=== PATIENT | male | born 1975 | race Caucasian/White ===

== ENCOUNTER 2018-01-04 20:35 | Emergency (ER) | payer BC, SELFPAY ==
[2018-01-04 21:12] VITALS: BP 111/81; PULSE 72; RESP 14; TEMP 36.8; O2SAT 97; BMI 30.4
--- NOTE | 2018-01-04 21:17 | HMH.EDUTC ---
[facility] [place] Clinical Impression: Blood pressure check, History of headache Disposition: Home, Self-Care Condition on Discharge: Good Instructions: DI for Headache Additional Instructions: Your blood pressure was great Headaches can be due to posture and stress I would encourage keeping a headache diary. Write down when they occur, what is going on, how long they last, characteristics, any interventions and over time, it is easier to find cause Referrals: Mehreen Natarajan PA [Primary Care Provider] - (as needed if headaches persist) Time of Disposition: 21:34 Medical Decision Making Vital Signs: 01/04/18 21:12 Temperature 98.2 F Temperature Source Temporal Artery Scan Pulse Rate [Right Brachial] 72 Respiratory Rate 14 Blood Pressure [Right Arm] 111/81 Blood Pressure Mean [Right Arm] 91 Blood Pressure Source [Right Arm] Automatic Cuff Blood Pressure Position [Right Arm] Sitting 02 Sat by Pulse Oximetry 97 Oxygen Delivery Method Room Air - Cas Inquiry Pt receiving controlled substance: No [facility] [place] - General Stated complaint: headache Time Seen by Provider: 01/04/18 21:17 Mode of Arrival: Ambulatory Source of Information: Patient Limitations: No Limitations Description of Symptoms (Recalled from Triage Doc. by RN): STATES THAT HE HAS HAD HEADACHES A LOT LATELY AND DECIDED THAT SINCE HE WAS HERE WITH HIS SON, HE WOULD GET HIS BP CHECKED TO SEE IF THAT'S THE CAUSE. PT DENIES HX OF MIGRAINES OR ANY OTHER PROBLEMS. HEENT Symptoms (Recalled from RN notes): Yes (HILL) Resp Symptoms (Recalled from RN notes): No Skin Symptoms (Recalled from RN notes): No MS Symptoms (Recalled from RN notes): No Functional Status (Recalled from RN notes): N/A - History of Present Illness Provider Complaint: c/o I just want my blood pressure checked . Intermittent headaches x weeks. Contibutes them to more driving and stress. Start w/ tension in neck and move into head. Sees chiropractor for neck and shoulder tension at times. Resolved with hemp oil. I just want to be sure not due to blood pressure or something . No headache currently. Here with son who has JULES. - Related Data Allergies Allergy/AdvReac Type Severity Reaction Status Date / Time No Known Allergies Allergy Unverified 11/06/17 14:31 - Worker's Comp Is this a Worker's Comp case?: No [facility] History I have reviewed the patient's past medical history: Yes Medical History: Reports:: Gastroesophageal Reflux Disease(GERD) Denies:: Cancer, Diabetes Mellitus Type 1, Diabetes Mellitus Type 2, Hypertension, MRSA Other Medical History: Reports: Other (insomnia) Other Surgeries: Yes: No Previous Surgery Amputation: No Fractures: No - *Social History Smoking Status: Never smoker Alcohol Intake: never - Psychiatric History Expresses thoughts of harming self/others: None Suicide Plan Description: No Plan ROS Obtained: Yes Systems reviewed as appropriate & no additional complaints - Constitutional Constitutional: Denies body ache, Denies chills, Denies difficulty sleeping, Denies fatigue, Denies fever(s) - Eyes Eyes: Denies blurry vision, Denies change in vision - ENT Ears, Nose, Mouth, and Throat: Denies dizziness, Denies otalgia, Denies ringing in the ears - Cardiovascular Cardiovascular: Denies chest pain, Denies irregular heart rhythm - Respiratory Respiratory: No dyspnea - Gastrointestinal Gastrointestingal: Denies: nausea, vomiting - Musculoskeletal Musculoskeletal: Reports as per HPI, Reports stiffness (in neck and shoulders with driving long distances, doing so more lately) - Integumentary/Breasts Skin/Breast: Denies lesions, Denies rash - Neurologic Neurologic: Reports as per HPI, Denies abnormal gait, Denies abnormal hearing, Denies behavioral changes, Denies lack of coordination, Denies tingling/numbness/burning sensations, Denies weakness Physical Exam - General General appearance: alert, in no apparent distress - Hea
[2018-01-04 21:35] VITALS: BP 135/76; PULSE 76; RESP 20; TEMP 36.6; O2SAT 100
== END 2018-01-04 21:36 | disposition home or self-care (01) ==
PROVIDERS: Emergency Provider Nurse Practitioner Family; PCP Physician Assistant
DX: R51 Headache (principal); K21.9 Gastro-esophageal reflux disease without esophagitis; Z01.30 Encounter for examination of blood pressure without abnormal findings; G47.00 Insomnia, unspecified
CPT/HCPCS: 99202

== ENCOUNTER 2020-06-21 19:09 | Emergency (ER) | payer BC, SELFPAY ==
[2020-06-21 19:27] VITALS: BP 137/87; PULSE 80; RESP 14; TEMP 36.9; O2SAT 99; BMI 31.1
--- NOTE | 2020-06-21 19:33 | XR_ITS ---
PROCEDURE: XR HAND RT MIN 3V CLINICAL INDICATION: INJURY Pain COMPARISON: No exams were available for comparison FINDINGS: No fracture or dislocation. No lytic or blastic change. There is normal mineralization. The joint spaces are well-preserved. No significant degenerative/arthritic changes. No erosive changes evident. Other findings:None. IMPRESSION: No acute findings. Dictated by: Bala Arango MD 06/21/2020 21:47 Bala Arango MD in [place] 07/27/2020 05:05
--- NOTE | 2020-06-21 19:33 | XR_ITS ---
PROCEDURE: XR WRIST RT MIN 3V CLINICAL INDICATION: INJURY Posttraumatic pain COMPARISON: No exams were available for comparison FINDINGS: No fracture or dislocation. No lytic or blastic change. There is normal mineralization. The joint spaces are well-preserved. No significant degenerative/arthritic changes. No erosive changes evident. Other findings:None. IMPRESSION: No acute findings. This exam was originally interpreted on 06/21/2020 and has been resubmitted for 2nd signature on 07/26/2020 Dictated by: Bala Arango MD 06/21/2020 21:47 Bala Arango MD in [place] 07/27/2020 05:02
--- NOTE | 2020-06-21 20:23 | HMH.EDUTC ---
[facility] [place] Impression: Right wrist sprain Qualifiers: Encounter type: initial encounter Qualified Code(s): S63.501A - Unspecified sprain of right wrist, initial encounter Sprain of right hand Qualifiers: Encounter type: initial encounter Qualified Code(s): S63.91XA - Sprain of unspecified part of right wrist and hand, initial encounter Disposition: Home, Self-Care Condition on Discharge: Good Instructions: Wrist Sprain, DI for Wrist Sprain Additional Instructions: Rest the extremity, apply ice for 15 minutes as tolerated three or four times per day, Wear the robb wrap for compression, Elevate the extremity as tolerated while you are resting. Take ibuprofen for pain. I sent in a prescription to your pharmacy. Follow up with Dr. Shepherd (orthopedics). I put in a referral but you need to call her office and schedule an appointment. Follow up with your regular doctor. GO TO THE ER FOR ANY WORSENING SYMPTOMS Prescriptions: Ibuprofen [Ibuprofen 600mg Tablet] 600 mg PO Q6HP PRN #30 tab PRN Reason: Mild Pain Transmission Status: Received by [facility] Referrals: Mehreen Natarajan PA [Primary Care Provider] - Clare Shepherd MD [Physician] - Time of Disposition: 20:30 Medical Decision Making - Medical Records Medical records reviewed: No: I reviewed the patient's medical records. - Cas Inquiry Pt receiving controlled substance: No Vital Signs: 06/21/20 19:27 06/21/20 20:26 Temperature 98.5 F 98.5 F Temperature Source Oral Pulse Rate 80 Pulse Rate [Right Brachial] 80 Respiratory Rate 14 14 Blood Pressure 137/87 Blood Pressure [Right Arm] 137/87 Blood Pressure Mean [Right Arm] 103 Blood Pressure Source [Right Arm] Automatic Cuff Blood Pressure Position [Right Arm] Sitting 02 Sat by Pulse Oximetry 99 Oxygen Delivery Method Room Air Orders (Tests/Meds): ORDERS Category Date Time Status Wrist XR right minimum 3 views [XR wrist RT min 3V] Exams 06/21/20 19:33 Taken Stat XR hand RT min 3V Stat Exams 06/21/20 19:33 Taken - Radiology Data #1 Image(s): Wrist Image Reviewed: Yes I reviewed the patient's radiology image, Yes I have reviewed radiologist's interpretation Preliminary Findings: No Fracture Seen #2 Image(s): Hand Image Reviewed: Yes I reviewed the patient's radiology image, Yes I have reviewed radiologist's interpretation Preliminary Findings: No Fracture Seen [facility] [place] - General Stated complaint: [id number] injured R Arm Time Seen by Provider: 06/21/20 19:40 Mode of Arrival: Ambulatory Source of Information: Patient Limitations: No Limitations Description of Symptoms (Recalled from Triage Doc. by RN): PATIENT C/O PAIN AND SWELLING TO RIGHT WRIST AREA AFTER FALLING AND TRYING TO CATCH HIMSELF WITH THAT HAND. DENIES HITTING HEAD OR ANY OTHER INJURIES HEENT Symptoms (Recalled from RN notes): No Resp Symptoms (Recalled from RN notes): No Skin Symptoms (Recalled from RN notes): No MS Symptoms (Recalled from RN notes): Yes Functional Status (Recalled from RN notes): WNL - History of Present Illness Provider Complaint: He states that earlier today, he was helping to carry a wagon washer when he slipped and fell backwards. He came down on his right wrist and hand. He has had right hand pain since then that is worse when he is making a fist. - Related Data Previous Rx's Medication Instructions Recorded citalopram 40 mg tablet 40 mg PO DAILY #30 tab 09/09/18 [id number] 3.5 4 drp OTIC TID 10 Days #10 ml 05/31/19 mg/mL-10,000 unit/mL-1 % ear solution Ibuprofen [Ibuprofen 600mg 600 mg PO Q6HP PRN #20 tab 07/21/19 Tablet] sulfamethoxazole 800 1 tab PO BID 10 Days #20 tab 09/15/19 mg-trimethoprim 160 mg tablet omeprazole 20 mg capsule,delayed 20 mg PO DAILY #90 cap 11/27/19 release Ibuprofen [Ibuprofen 600mg 600 mg PO Q6HP PRN #30 tab 06/21/20 Tablet] Aller
[2020-06-21 20:26] VITALS: BP 137/87; PULSE 80; RESP 14; TEMP 36.9; O2SAT 99
== END 2020-06-21 20:37 | disposition home or self-care (01) ==
PROVIDERS: Emergency Provider Nurse Practitioner Family; PCP Physician Assistant
DX: S63.501A Unspecified sprain of right wrist, initial encounter (principal); W01.198A Fall on same level from slipping, tripping and stumbling with subsequent striking against other object, initial encounter; Y92.89 Other specified places as the place of occurrence of the external cause; F41.8 Other specified anxiety disorders; K21.9 Gastro-esophageal reflux disease without esophagitis
CPT/HCPCS: 29125; 73110; 73130; 99203

== ENCOUNTER 2020-06-24 11:30 | Outpatient (RCR) | payer BC, SELFPAY | END 2020-06-24 12:00 | disposition home or self-care (01) | LOC: PT 11:30 | PROVIDERS: Visit Provider Orthopaedic Surgery | DX: S63.501A Unspecified sprain of right wrist, initial encounter (principal) | CPT/HCPCS: 97760 ==

== ENCOUNTER → 2021-07-18 18:14 | Outpatient (CLI) | payer BC, SELFPAY ==
--- NOTE | 2021-07-19 11:59 | PC.NURSE ---
Called pt and left voicemail
--- NOTE | 2021-07-19 13:20 | PC.NURSE ---
Notified pt of positive results
== END ==
PROVIDERS: Visit Provider Physician Assistant
DX: Z11.52 Encounter for screening for COVID-19 (principal); U07.1 COVID-19; R69 Illness, unspecified; J02.9 Acute pharyngitis, unspecified
CPT/HCPCS: U0003

== ENCOUNTER → 2021-08-15 13:46 | Outpatient (CLI) | payer BC, SELFPAY ==
[2021-08-15 13:57] LABS: Basophils % 0.8 % (0.1-2.0); Eosinophils # 0.1 K/mm3 (0.0-0.4); Eosinophils % 2.7 % (0.1-12.0); Hemoglobin 15.5 g/dL (14.1-18.0); Lymphocytes # 1.1 K/mm3 (0.7-4.5); Mean Corpuscular Hemoglobin 31.7 pg (27.0-31.2); Mean Corpuscular Volume 96.1 fl (80-94); Mean Platelet Volume 9.3 fl (7.4-10.4); Monocytes # 0.3 K/mm3 (0.1-1.0); Monocytes % 8.6 % (1.7-9.3); Neutrophils # 2.1 K/mm3 (1.8-7.8); Neutrophils % 56.9 % (37.0-80.0); Platelet Count 166 K/mm3 (142-424); Red Blood Count 4.89 M/mm3 (4.60-6.20); Red Cell Distribution Width 13.5 % (11.5-17.5); White Blood Count 3.6 K/mm3 (4.8-10.8)
[2021-08-15 14:19] LABS: Free T4 (Free Thyroxine) 0.87 ng/dl (0.78-2.19)
[2021-08-15 15:30] LABS: Alanine Aminotransferase 30 U/L (12-78); Albumin Level 4.1 g/dl (3.5-5.0); Albumin/Globulin Ratio 1.7 (1.1-1.8); Alkaline Phosphatase 77 U/L (38-126); Anion Gap 12.1 mEq/L (5-15); Aspartate Amino Transferase 33 U/L (17-59); Bilirubin,Total 0.5 mg/dl (0.2-1.3); Blood Urea Nitrogen 22 mg/dl (9-20); Carbon Dioxide 25 mmol/L (22.0-30.0); Chloride 106 mmol/L (98-107); Chol/HDL Ratio 3.6 (1-3.5); Cholesterol 165 mg/dl (140-200); Estimated Glomerular Filt Rate 80 ml/min (>60); GFR (African American) 97 ML/MIN (>60); Globulin 2.4 g/dL (1.3-3.2); Glucose 83 mg/dl (74-100); HDL Cholesterol 46 mg/dl (40-60); Potassium 4.1 mmoL/L (3.5-5.1); Sodium 139 mmol/L (136-145); Total Protein,Serum 6.5 g/dl (6.3-8.2); Triglycerides 125 mg/dl (30-150); VLDL Cholesterol 25 mg/dL (0-40)
[2021-08-15 15:41] LABS: Direct LDL Cholesterol 91.22 mg/dL (100-129)
[2021-08-15 15:58] LABS: Thyroid Stimulating Hormone 1.59 uIU/mL (0.465-4.68)
== END ==
PROVIDERS: Visit Provider Physician Assistant
DX: R53.83 Other fatigue (principal); E66.9 Obesity, unspecified; Z68.31 Body mass index [BMI] 31.0-31.9, adult
CPT/HCPCS: 80053; 80061; 82306; 84439; 84443; 85025

== ENCOUNTER 2022-11-05 10:45 | Emergency (ER) | payer BC, SELFPAY ==
[2022-11-05 11:04] VITALS: BP 164/86; PULSE 117; RESP 18; TEMP 36.6; O2SAT 98; BMI 31.4
--- NOTE | 2022-11-05 11:08 | EXP.UTC ---
Discharge Plan Disposition Patient Disposition: Home, Self-Care Condition: Good Prescriptions Prescriptions: No Action triamcinolone acetonide 0.1 % paste 1 applic DENTAL TID Qty: 5 0RF Orabase (benzocaine) 20 % paste 1 applic MUCOUS MEM TID PRN (Reason: mouth irritation) Qty: 11.9 0RF Rx Instructions: Mix with triamcinolone pantoprazole 40 mg tablet,delayed release (DR/EC) 40 mg PO DAILY Qty: 90 3RF azithromycin [Zithromax Z-Toni] 250 mg tablet See Rx Instructions PO .COMPLEX Qty: 6 0RF Rx Instructions: For 250 mg dose pack: take 500 mg today (day 1), then 250 mg for 4 days (days 2-5) PO methylprednisolone [Medrol (Toni)] 4 mg tablets,dose pack 4 mg PO PER PKG DIR 6 Days Qty: 21 0RF quetiapine 400 mg tablet See Rx Instructions .ROUTE .COMPLEX Qty: 30 0RF Dose Instruction: TAKE ONE TABLET BY MOUTH AT BEDTIME Rx Instructions: TAKE ONE TABLET BY MOUTH AT BEDTIME cyclobenzaprine 10 mg tablet See Rx Instructions .ROUTE .COMPLEX Qty: 90 0RF Dose Instruction: TAKE ONE TABLET BY MOUTH 3 TIMES A DAY NEEDED FOR MUSCLE SPASM Rx Instructions: TAKE ONE TABLET BY MOUTH 3 TIMES A DAY NEEDED FOR MUSCLE SPASM cholecalciferol (vitamin D3) 25 mcg (1,000 unit) tablet See Rx Instructions .ROUTE .COMPLEX Qty: 30 3RF Dose Instruction: TAKE ONE TABLET BY MOUTH ONCE A DAY FOR VITAMIN D DEFICIENCY Rx Instructions: TAKE ONE TABLET BY MOUTH ONCE A DAY FOR VITAMIN D DEFICIENCY atorvastatin 10 mg tablet See Rx Instructions .ROUTE .COMPLEX Qty: 30 3RF Dose Instruction: TAKE ONE TABLET BY MOUTH AT BEDTIME FOR HYPERLIPIDEMIA Rx Instructions: TAKE ONE TABLET BY MOUTH AT BEDTIME FOR HYPERLIPIDEMIA pramoxine [Proctofoam] 1 % foam 1 applic TX TID Qty: 15 3RF Referrals Follow up/Referrals: Mehreen Natarajan PA [Primary Care Provider] - See instructions Activity Restrictions/Add. Instructions Additional Instructions/Restrictions: Continue using prescribed medication for Hemorrhoids as prescribed from you Family Doctor Over the counter Preparation H wipes may help with discomofort Make sure you are not sitting on the toilet for extended periods of times or straining with your bowel movements Follow up with your Family Doctor or General Surgery if symptoms continue or worsen Return if needed Clinical Impressions Clinical Impression: Hemorrhoid Qualifiers: Hemorrhoid type: unspecified Qualified Code(s): K64.9 - Unspecified hemorrhoids Instructions Patient Instructions: Hemorrhoids (Alternative Therapy), Hemorrhoids, DI for Hemorrhoids [place] Bouchra Burch [facility] [place] General Stated complaint: hemmaroid Time Seen by Provider: 11/05/22 11:08 History of Present Illness Provider Complaint: Patient states that he has been having an issue with Hemorrhoid for the last few days States that his PCP sent him in some Proctofoam and he has been using it State that last night he sit alot at a card game and drink some alcohol got it aggravated and wasn't sure if there was something else he can use so he came in Related Data Previous Rx's Medication Instructions Recorded benzocaine 20 % mucosal paste 1 applic mucous membrane TID PRN 09/01/21 (Orabase (benzocaine)) mouth irritation #11.9 grams triamcinolone acetonide 0.1 % 1 applic dental TID #5 grams 09/01/21 dental paste pantoprazole 40 mg tablet,delayed 40 mg PO DAILY #90 tabs 05/02/22 release azithromycin 250 mg tablet See Rx Instructions PO .COMPLEX #6 08/17/22 (Zithromax Z-Toni) tabs methylprednisolone 4 mg tablets in 4 mg PO PER PKG DIR 6 days #21 tabs 08/17/22 a dose pack (Medrol (Toni)) quetiapine 400 mg tablet See Rx Instructions .Route 09/20/22 .COMPLEX #30 tabs atorvastatin 10 mg tablet See Rx Instructions .Route 10/18/22 .COMPLEX #30 tabs cholecalciferol (vitamin D3) 25 See Rx Instructions .Route 10/18/22 mcg (1,000 unit) tablet .COMPLEX #30 tabs
[2022-11-05 11:29] VITALS: BP 164/86; PULSE 106; RESP 18; TEMP 36.6
== END 2022-11-05 11:30 | disposition home or self-care (01) ==
PROVIDERS: Emergency Provider Nurse Practitioner; PCP Physician Assistant
DX: K64.9 Unspecified hemorrhoids (principal)
CPT/HCPCS: 99212; G0463

== ENCOUNTER → 2023-11-16 08:39 | Outpatient (CLI) | payer BC, SELFPAY ==
[2023-11-16 17:52] LABS: Coronavirus 19, PCR Not Detected (NotDetected); Influenza A, PCR Not Detected (NotDetected)
[2023-11-16 19:37] LABS: Influenza B, PCR Detected (NotDetected)
== END ==
LOC: LAB.DROPOF 11-17 08:40
PROVIDERS: PCP Nurse Practitioner Family; Visit Provider Family Medicine
DX: R05.9 Cough, unspecified (principal); J10.1 Influenza due to other identified influenza virus with other respiratory manifestations
CPT/HCPCS: 87636

== ENCOUNTER 2023-11-27 17:55 | Outpatient (CLI) | payer BC, SELFPAY ==
[2023-11-27 18:34] LABS: Basophils % 0.5 % (0.1-2.0); Eosinophils # 0.1 K/mm3 (0.0-0.4); Eosinophils % 1.2 % (0.1-12.0); Hematocrit 44.2 % (42.0-52.0); Hemoglobin 14.7 g/dL (14.1-18.0); Lymphocytes # 1.5 K/mm3 (0.7-4.5); Lymphocytes % 32.7 % (10-50); Mean Corpuscular HGB Conc 33.3 g/dL (31.8-35.4); Monocytes # 0.3 K/mm3 (0.1-1.0); Monocytes % 6.9 % (1.7-9.3); Neutrophils # 2.6 K/mm3 (1.8-7.8); Neutrophils % 58.7 % (37.0-80.0); Platelet Count 252 K/mm3 (142-424); Red Blood Count 4.46 M/mm3 (4.60-6.20); Red Cell Distribution Width 13.3 % (11.5-17.5); White Blood Count 4.4 K/mm3 (4.8-10.8)
[2023-11-27 18:35] LABS: Alanine Aminotransferase 34 U/L (12-78); Albumin/Globulin Ratio 1.5 (1.1-1.8); Alkaline Phosphatase 83 U/L (38-126); Anion Gap 8.9 mEq/L (5-15); Aspartate Amino Transferase 35 U/L (17-59); Bilirubin,Total 0.6 mg/dl (0.2-1.3); Blood Urea Nitrogen 17 mg/dl (9-20); Calcium 8.8 mg/dl (8.4-10.2); Carbon Dioxide 27 mmol/L (22.0-30.0); Chloride 104 mmol/L (98-107); Chol/HDL Ratio 3.5 (1-3.5); Cholesterol 201 mg/dl (140-200); Estimated Glomerular Filt Rate 103 ml/min (>60); GFR (African American) 125 ML/MIN (>60); Globulin 2.6 g/dL (1.3-3.2); Glucose 105 mg/dl (74-100); HDL Cholesterol 58 mg/dl (40-60); Potassium 4.9 mmoL/L (3.5-5.1); Sodium 135 mmol/L (136-145); Total Protein,Serum 6.6 g/dl (6.3-8.2); Triglycerides 100 mg/dl (30-150); VLDL Cholesterol 20 mg/dL (0-40)
[2023-11-27 18:47] LABS: Direct LDL Cholesterol 106.67 mg/dL (100-129)
[2023-11-27 18:52] LABS: 25-OH Vitamin D, Total 36.3 ng/mL (30-100)
[2023-11-27 19:05] LABS: Thyroid Stimulating Hormone 0.99 uIU/mL (0.465-4.68)
[2023-11-27 20:53] LABS: Hemoglobin A1C 4.9 % (4.0-6.0)
== END 2023-11-27 23:59 ==
LOC: LAB.DROPOF 17:56
PROVIDERS: PCP Student in an Organized Health Care Education/Training Program; Visit Provider Student in an Organized Health Care Education/Training Program
DX: E78.5 Hyperlipidemia, unspecified (principal); R03.0 Elevated blood-pressure reading, without diagnosis of hypertension; E55.9 Vitamin D deficiency, unspecified; Z13.29 Encounter for screening for other suspected endocrine disorder; R73.9 Hyperglycemia, unspecified; E66.8 Other obesity; Z68.31 Body mass index [BMI] 31.0-31.9, adult
CPT/HCPCS: 80053; 80061; 82306; 83036; 84443; 85025

== ENCOUNTER 2023-12-06 10:41 | Outpatient (CLI) | payer BC, SELFPAY ==
[2023-12-06 11:13] LABS: Basophils % 0.9 % (0.1-2.0); Eosinophils # 0.1 K/mm3 (0.0-0.4); Eosinophils % 1.4 % (0.1-12.0); Hematocrit 45.4 % (42.0-52.0); Hemoglobin 15.2 g/dL (14.1-18.0); Lymphocytes # 1.3 K/mm3 (0.7-4.5); Mean Corpuscular HGB Conc 33.6 g/dL (31.8-35.4); Mean Corpuscular Hemoglobin 33.2 pg (27.0-31.2); Mean Platelet Volume 8.1 fl (7.4-10.4); Monocytes # 0.4 K/mm3 (0.1-1.0); Monocytes % 9.4 % (1.7-9.3); Neutrophils # 2.8 K/mm3 (1.8-7.8); Neutrophils % 60.2 % (37.0-80.0); Platelet Count 181 K/mm3 (142-424); Red Blood Count 4.58 M/mm3 (4.60-6.20); Red Cell Distribution Width 13.5 % (11.5-17.5); White Blood Count 4.6 K/mm3 (4.8-10.8)
[2023-12-06 11:36] LABS: Chloride 105 mmol/L (98-107); Potassium 4.2 mmoL/L (3.5-5.1); Sodium 137 mmol/L (136-145)
[2023-12-06 11:39] LABS: Anion Gap 12.2 mEq/L (5-15); Blood Urea Nitrogen 21 mg/dl (9-20); Carbon Dioxide 24 mmol/L (22.0-30.0); Estimated Glomerular Filt Rate 80 ml/min (>60); GFR (African American) 97 ML/MIN (>60); Iron 83 ug/dL (49-181)
[2023-12-06 11:40] LABS: Calcium 8.9 mg/dl (8.4-10.2); Glucose 117 mg/dl (74-100)
[2023-12-06 11:51] LABS: Total Iron Binding Capacity 326 ug/dL (261-462)
[2023-12-06 12:14] LABS: Ferritin 85.8 ng/ml (17.9-464)
[2023-12-06 12:29] LABS: Vitamin B12 306 pg/mL (239-931)
[2023-12-06 12:48] LABS: Folate 8.08 ng/mL
[2023-12-08 10:44] LABS: Peripheral Smear Review Scanned Result
== END 2023-12-06 23:59 ==
LOC: LAB 10:42
PROVIDERS: PCP Physician Assistant; Visit Provider Student in an Organized Health Care Education/Training Program
DX: D64.9 Anemia, unspecified (principal); D72.819 Decreased white blood cell count, unspecified
CPT/HCPCS: 36415; 80048; 82607; 82728; 82746; 83540; 83550; 85025

== ENCOUNTER 2024-06-20 11:41 | Outpatient (CLI) | payer BC, SELFPAY | END 2024-06-20 23:59 | disposition home or self-care (01) | LOC: LAB.DROPOF 06-23 11:42 | PROVIDERS: PCP Student in an Organized Health Care Education/Training Program; Visit Provider Student in an Organized Health Care Education/Training Program | DX: R05.9 Cough, unspecified (principal); R53.83 Other fatigue | CPT/HCPCS: 87635 ==